=== PATIENT | female | born 1940 | race Caucasian/White ===

== ENCOUNTER 2016-07-15 20:26 | Emergency (ER) | payer MEDICARE, OTHER ==
[2016-07-15 21:33] LABS: PH,URINE 6.5 (5.0-8.0); URINE BILIRUBIN NEGATIVE (NEGATIVE); URINE BLOOD NEGATIVE (NEGATIVE); URINE GLUCOSE (UA) NEGATIVE (NEGATIVE); URINE LEUKOCYTE ESTERASE NEGATIVE (NEGATIVE); URINE NITRITE NEGATIVE (NEGATIVE); URINE PROTEIN NEGATIVE (NEGATIVE); URINE UROBILINOGEN NORMAL (0-1 mg/dl)
[2016-07-15 21:34] LABS: URINE APPEARANCE CLEAR; URINE COLOR LIGHT YELLOW
--- NOTE | 2016-07-15 22:00 | CT ---
Name: RADHA GARCIA Exam: CT head without contrast Comparison: 01/26/2006 Clinical history: Headache Technique: Helical CT was performed through the head. Angled axial reconstructions were obtained. Sagittal and coronal reconstructions were obtained as well. No contrast was given. An automated dose reduction technique was used to minimize patient radiation dose. Findings: There is no shift of the midline structures. Ventricles are of normal size and configuration. There is no mass, mass effect or hemorrhage. Cisterns are uneffaced. Posterior fossa is unremarkable. There is a partially imaged left maxillary sinus mucus retention cyst or polyp. Mastoid air cells are clear. There is no fracture. Impression: No acute intracranial process Note: The above report was uploaded to [facility]'s electronic medical records system at 2155 hours.
[2016-07-15] MEDS ORDERED: OXYCODONE HCL 5 MG TABLET ONE (22:13)
== END 2016-07-15 22:26 | disposition home or self-care (01) ==
LOC: ED 20:26
DX: R51 Headache (principal); H53.8 Other visual disturbances
CPT/HCPCS: 81003; 70450; 99283 ×2; A9270